=== PATIENT | male | born 1980 | race Two or more races ===

== ENCOUNTER 2025-03-18 09:32 | Outpatient (RCR) | payer MEDICAID, SELFPAY ==
--- NOTE | 2025-03-18 10:00 | XR_ITS ---
Examination: SANDRINE hepatobiliary radioisotope scan Gallbladder ejection fraction study. Date and time of exam: March 18, 2025, 11:43 a.m. INDICATIONS: Intermittent upper abdominal pain beginning 4 years ago with bloating Technique: 6.0 mCi of 99M Hepatolite administered. Serial imaging then obtained from immediate through 60 minutes. 2.0 mcg selective catheter Kinevac administered for gallbladder ejection fraction study. Findings: Radioisotope activity within the liver is reasonably homogenous. Gallbladder, common bile duct small bowel activity noted Impression: Gallbladder activity Normal gallbladder ejection fraction, 73%
== END 2025-03-23 23:59 | disposition home or self-care (01) ==
LOC: SNUC 09:32
PROVIDERS: PCP Family Medicine; Referring Provider Physician Assistant; Visit Provider Physician Assistant
DX: R10.11 Right upper quadrant pain (principal)
CPT/HCPCS: 78227; A9517; J2805